=== PATIENT | female | born 2000 | race Two or more races ===

== ENCOUNTER 2023-07-04 10:07 | Emergency (ER) | payer BC, OTHER ==
[~2023-07-04] VITALS: Ht 154.9 cm; Wt 65.9 kg
[2023-07-04] MEDS ORDERED: METH4PAK PO (11:23)
[2023-07-04] MEDS ORDERED: IBUP-1454 PO (11:23)
[2023-07-04] MEDS ORDERED: AZIT500T66 PO (11:23)
[2023-07-04 11:29] VITALS: BP 123/78; PULSE 65; RESP 16; TEMP 98; O2SAT 98
== END 2023-07-04 11:53 | disposition home or self-care (01) ==
LOC: ER 10:07
DX: H66.91 Otitis media, unspecified, right ear (principal); J03.90 Acute tonsillitis, unspecified; Z79.1 Long term (current) use of non-steroidal anti-inflammatories (NSAID); Z79.899 Other long term (current) drug therapy

== ENCOUNTER 2023-07-10 11:38 | Emergency (ER) | payer BC, MEDICAID ==
[~2023-07-10] VITALS: Ht 154.9 cm; Wt 66.3 kg
[~2023-07-10 11:38] MED LIST: AZIT500T66 PO; IBUP-1454 PO; METH4PAK PO
[2023-07-10 13:31] VITALS: BP 121/75; PULSE 65; RESP 16; TEMP 98.4; O2SAT 99
[2023-07-10] MEDS ORDERED: diphenhdrAMINE HCL 50 MG/1 ML VL IV ONE ×2 (13:45→14:15)
[2023-07-10] MEDS ORDERED: SODIUM CHLORIDE 0.9% 1,000 ML IV ONE (13:45)
[2023-07-10] MEDS ORDERED: PROCHLORPERAZINE EDISYLATE 5 MG/ML 2ML VIAL IV ONE ×2 (13:45→14:15)
[2023-07-10] MEDS ORDERED: BUTAPT PO (15:43)
== END 2023-07-10 16:01 | disposition home or self-care (01) ==
LOC: ER 11:38
DX: G43.909 Migraine, unspecified, not intractable, without status migrainosus (principal)
CPT/HCPCS: 70450; 96361; 96374; 96375; 96376; 99285; J7030